=== PATIENT | male | born 1970 | race Caucasian/White ===

== ENCOUNTER 2016-08-11 16:40 | Outpatient (CLI) | payer OTHER ==
--- NOTE | 2016-08-11 18:39 | DIAGNOSTIC IMAGING REPORT ---
PROCEDURE: CTA THORAX WITH CONTRAST INDICATION: Shortness of breath and cough, initial encounter TECHNIQUE: 80 ml of Isovue 370 was injected intravenously and axial images were obtained of the entire thorax with 3D sagittal and coronal MIP reconstructions. COMPARISON: Chest x-ray [facility] 08/11/2016 FINDINGS: No evidence of pulmonary emboli. Mild emphysematous changes. Mild dependent atelectasis posteriorly. Mild bilateral hilar and subcarinal adenopathy. No effusion. Normal thoracic aorta without dissection or aneurysm. No coronary atherosclerosis Heart size is normal. Hepatic steatosis. Splenule present. Bones are unremarkable . IMPRESSION: 1. No evidence of pulmonary emboli 2. Emphysema 3. Mild hilar and subcarinal adenopathy, likely reactive 4. Hepatic steatosis and five results discussed with Dr. Medellin.
--- NOTE | 2016-08-11 18:39 | DIAGNOSTIC IMAGING REPORT ---
PROCEDURE: CTA THORAX WITH CONTRAST INDICATION: Shortness of breath and cough, initial encounter TECHNIQUE: 80 ml of Isovue 370 was injected intravenously and axial images were obtained of the entire thorax with 3D sagittal and coronal MIP reconstructions. COMPARISON: Chest x-ray [facility] 08/11/2016 FINDINGS: No evidence of pulmonary emboli. Mild emphysematous changes. Mild dependent atelectasis posteriorly. Mild bilateral hilar and subcarinal adenopathy. No effusion. Normal thoracic aorta without dissection or aneurysm. No coronary atherosclerosis Heart size is normal. Hepatic steatosis. Splenule present. Bones are unremarkable . IMPRESSION: 1. No evidence of pulmonary emboli 2. Emphysema 3. Mild hilar and subcarinal adenopathy, likely reactive 4. Hepatic steatosis and [address] Medellin.
== END 2016-08-11 23:00 ==
LOC: CT SRH 16:40
DX: J43.9 Emphysema, unspecified (principal); R59.9 Enlarged lymph nodes, unspecified; K76.0 Fatty (change of) liver, not elsewhere classified